=== PATIENT | female | born 1960 ===

== ENCOUNTER 2018-02-18 10:55 | Day surgery (SDC) | payer BC ==
[~2018-02-18 10:55] MED LIST: Buffered Lidocaine 0.9% SYRIN* 5 ML/SYR SYRINGE INTRADERM ONE; Famotidine IV* 10 MG/ML 2 ML (20 mg) IV ONE
[2018-02-18] MEDS ORDERED: Famotidine IV* 10 MG/ML 2 ML (20 mg) ONE (11:51)
[2018-02-18] MEDS ORDERED: Lidocaine 2% PF * 5 ML VIAL ONE (12:44)
[2018-02-18] MEDS ORDERED: Mivacurium Chloride* 20 MG/10 ML VIAL IV ONE (12:44)
[2018-02-18] MEDS ORDERED: Propofol* 10 MG/ML 20 ML BTL IV PUSH ONE (12:44)
[2018-02-18] MEDS ORDERED: fentaNYL* 50 MCG/ML 2 ML VIAL (100 MCG VIAL) ONE (12:45)
[2018-02-18] MEDS ORDERED: Midazolam* 1 MG/ML 5 ML VIAL (5 MG) ONE (12:45)
[2018-02-18] MEDS ORDERED: DiMENhydriNATE IV* 50 MG/ML VIAL IV PUSH PRN (13:05)
[2018-02-18] MEDS ORDERED: oxyCODONE/Acetamin 5/325 MG* TAB PO PRN (13:05)
[2018-02-18] MEDS ORDERED: fentaNYL* 50 MCG/ML 2 ML VIAL (100 MCG VIAL) IV PRN (13:05)
[2018-02-18] MEDS ORDERED: Naloxone* 0.4 MG/ML 1 ML VIAL IV PRN (13:05)
[2018-02-18] MEDS ORDERED: HYDROcodone/ACETAMIN 5-325 MG* 1 TAB PO PRN (13:05)
[2018-02-18] MEDS ORDERED: Phenylephrine INJ* 10 MG/ML 1 ML VIAL (10 MG) ONE (13:42)
[2018-02-18] MEDS ORDERED: Ondansetron INJ* 2 MG/ML VIAL ONE (14:21)
[2018-02-18] MEDS ORDERED: HYDROcodone/ACETAMIN 5-325 MG* 1 TAB ONE (15:25)
[2018-02-18] MEDS ORDERED: Labetalol IV* 5 MG/ML 20 ML VIAL IV PUSH PRN (15:33)
[2018-02-18 17:46] VITALS: BP 134/79
--- NOTE | 2018-02-19 02:10 | PRO ---
BRONCHOSCOPY REPORT: DATE OF PROCEDURE: 02/18/18 - [facility] PROCEDURE PERFORMED: Bronchoscopy with endobronchial ultrasound-guided fine needle aspiration of mediastinal and hilar nodes. ANESTHESIA: General anesthesia. ANESTHESIOLOGIST: Dr. Rust. PREPROCEDURAL DIAGNOSIS: Mediastinal adenopathy. DESCRIPTION OF PROCEDURE: Informed consent was obtained from the patient prior to the procedure, after all the risks and benefits were thoroughly explained. The patient was noted to have mediastinal and hilar adenopathy recently. The patient also with evidence of adrenal mass. The patient was intubated with size 9.0 endotracheal tube. Ro Hugger and Venodynes placed. Appropriate time - out was agreed on by attending staff prior to the procedure. A flexible Olympus bronchoscope was inserted through ET tube for airway inspection. ET tube positioning was confirmed to be 1.5 cm above the level of bala. Bronchoscope was then advanced into the left bronchial tree, which was inspected. No endobronchial lesions were noted. Bronchoscope was then advanced into the right bronchial tree, which was then inspected. No endobronchial lesions were noted. All airways were patent. Minimal secretions were seen and were suctioned out. Bronchoscope was then withdrawn and EBUS bronchoscope was inserted. Station 7 lymph node was significantly enlarged and was sampled with 4 passes. Rapid on-site evaluation revealed lymphatic tissue. No malignant cells were noted. Station R4 was then sampled with 4 passes. Rapid on-site evaluation revealed lymphatic tissue. Station R10 was then accessed with 4 passes. Rapid on-site evaluation revealed lymphatic tissue. Rest of specimen was placed in CytoLyt. Specimen was also placed in CytoLyt for flow cytometry. The patient tolerated the procedure well. The patient was extubated and seen at recovery in optimal condition. [id number]/[facility] #: [id number] [facility]
== END 2018-02-18 17:47 | disposition home or self-care (01) ==
LOC: OR 10:55
PROVIDERS: ATTEND Internal Medicine
DX: R59.0 Localized enlarged lymph nodes (principal); I10 Essential (primary) hypertension; E03.9 Hypothyroidism, unspecified; G83.4 Cauda equina syndrome; G47.33 Obstructive sleep apnea (adult) (pediatric); Z87.891 Personal history of nicotine dependence; E66.01 Morbid (severe) obesity due to excess calories; Z88.0 Allergy status to penicillin; E11.9 Type 2 diabetes mellitus without complications
CPT/HCPCS: 88172; 88173; 88177; 88184; 88187; 88188; 88189; 88305; J2250; J2405; J2704; J3010